=== PATIENT | male | born 2005 | race African-American/Black ===

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

== ENCOUNTER 2024-01-03 14:56 | Emergency (ER) | payer OTHER ==
[~2024-01-03] VITALS: Ht 172.7 cm; Wt 111.1 kg
[2024-01-03] MEDS ORDERED: LIDOcaine HCl 1% (Local Anesth.) 20 ML VIAL STI STA (15:14)
[2024-01-03] MEDS ORDERED: Diph, Acellular Pertussis, Tet 0.5 ML/VIAL (Tdap) SDV IM ONE (15:15)
[2024-01-03] MEDS ORDERED: POVIDONE IODINE 0.5 OZ/BTL TOP ONE (15:15)
[2024-01-03 15:22] VITALS: BP 129/87
[2024-01-03 15:30] VITALS: BP 133/92
[2024-01-03 15:46] VITALS: BP 139/97
[2024-01-03 16:00] VITALS: BP 137/90
[2024-01-03] MEDS ORDERED: CEPHALEXIN500 M1 PO (16:14)
[2024-01-03 16:21] VITALS: BP 137/90
== END 2024-01-03 16:25 | disposition home or self-care (01) | DRG 605 ==
LOC: ED 14:56
PROC: 0HQ1XZZ Repair Face Skin, External Approach (ICD-10-PCS; principal; 2024-01-03)
DX: S01.81XA Laceration without foreign body of other part of head, initial encounter (principal); I10 Essential (primary) hypertension; E11.9 Type 2 diabetes mellitus without complications; W29.8XXA Contact with other powered hand tools and household machinery, initial encounter

== ENCOUNTER 2024-02-22 09:30 | Emergency (ER) | payer SELFPAY ==
[~2024-02-22] VITALS: Ht 172.7 cm; Wt 110.0 kg
[~2024-02-22 09:30] MED LIST changes: +CEPHALEXIN500 M1 PO
[2024-02-22 09:39] VITALS: BP 144/93
[2024-02-22 10:00] VITALS: BP 128/73
[2024-02-22 10:30] VITALS: BP 117/72
[2024-02-22 10:59] VITALS: BP 117/72
== END 2024-02-22 10:59 | disposition home or self-care (01) | DRG 948 ==
LOC: ED 09:30
DX: R52 Pain, unspecified (principal); R05.9 Cough, unspecified; E11.9 Type 2 diabetes mellitus without complications; I10 Essential (primary) hypertension; Z20.822 Contact with and (suspected) exposure to COVID-19

== ENCOUNTER 2024-07-03 12:16 | Emergency (ER) | payer SELFPAY ==
[~2024-07-03] VITALS: Ht 172.7 cm; Wt 108.0 kg
[~2024-07-03 12:16] MED LIST changes: +KEFLEX500 MG PO; +MUPIROCIN2 % EX; +TYLENOL500 MG PO
[2024-07-03 13:02] VITALS: BP 145/93
[2024-07-03 13:35] VITALS: BP 124/71
[2024-07-03] MEDS ORDERED: VIBRAMYCIN100 M2 PO (14:00)
[2024-07-03] MEDS ORDERED: LEVOCETIRIZINE D5 MG PO (14:00)
[2024-07-03] MEDS ORDERED: BENZONATATE200 MG PO (14:00)
[2024-07-03 14:01] VITALS: BP 121/77
[2024-07-03 14:12] VITALS: BP 121/77
== END 2024-07-03 14:12 | disposition home or self-care (01) | DRG 195 ==
LOC: ED 12:16
DX: J18.9 Pneumonia, unspecified organism (principal); J32.9 Chronic sinusitis, unspecified; I10 Essential (primary) hypertension; E11.9 Type 2 diabetes mellitus without complications; Z20.822 Contact with and (suspected) exposure to COVID-19